=== PATIENT | male | born 1980 ===

== ENCOUNTER 2025-02-21 05:30 | Day surgery (SDC) | payer OTHER ==
[2025-02-13 10:41] VITALS: BP 144/84
[~2025-02-21] VITALS: Ht 175.3 cm; Wt 99.8 kg
[2025-02-21] MEDS ORDERED: DIBUCAINE 30 GM TUBE ONE (08:34)
[2025-02-21] MEDS ORDERED: HEMOSTATIC MATRIX 1 KIT KIT TOP ONE (08:35)
[2025-02-21] MEDS ORDERED: CEFTRIAXONE SODIUM 2,000 MG VIAL ONE (08:43)
[2025-02-21] MEDS ORDERED: METRONIDAZOLE/SODIUM CHLORIDE 500 MG/100 ML PIGGYBACK IV ONE (08:44)
[2025-02-21] MEDS ORDERED: BUPIVACAINE LIPOSOME/PF 266 MG/20 ML VIAL IJ ONE (08:45)
== END 2025-02-21 15:00 | disposition home or self-care (01) ==
LOC: CIR.AMB 05:30
PROVIDERS: ATTEND Colon & Rectal Surgery
DX: K60.321 Anal fistula, complex, initial (principal); Z88.2 Allergy status to sulfonamides; K60.50 Anorectal fistula, unspecified